=== PATIENT | female | born 1995 | race American Indian/Alaskan Native ===

== ENCOUNTER 2021-04-15 08:14 | Emergency (ER) | payer SELFPAY ==
--- NOTE | 2021-04-15 08:31 | Emergency Department Report ---
ED Female HPI - General Stated complaint: HEAVY BLEEDING Time Seen by Provider: 04/15/21 08:25 - History of Present Illness Initial comments: The patient was evaluated in the emergency department for symptoms described in the history of present illness. He/she was evaluated in the context of the global COVID-19 pandemic, which necessitated consideration that the patient might be at risk for infection with the virus that causes COVID-19. Institut onal protocols and algorithms that pertain to the evaluation of patients at risk for COVID-19 are in a state of rapid change based on information released by regulatory bodies including the CDC and federal and state organizations. These policies and algorithms were followed during the patient's care in the emergency department. Please note that these policies, procedures and recommendations changed on a rapid basis. 25-year-old -[place] female presents to the emergency room stating she is having heavy menstrual cycle. Patient states that she has stop her control back in June and this is her third menstrual cycle that she has had. Patient denies any dizziness shortness of breath chest pain no nausea no vomiting. She reports mild cramping of 1 out of 10. States that her bleeding started yesterday. She reports that she is going to tampons and pads. She reports she currently does not have [facility]. She has no known drug allergies. She has no past medical history currently takes no meds on a daily basis. Patient states that she accept a blood transfusion. She is not vaccinated for Covid no recent travels no suicidal homicidal ideation does not smoke cigarettes marijuana and only drinks occasionally. Complaint: vaginal bleeding Onset/Timin -: days(s) Severity: mild Severity scale (0 -10): 1 Quality: cramping Consistency: intermittent Improves with: none Worsens with: none Are you Now?: No Last Menstrual Period: 04/14/21 EDC: 01/19/22 Associated Symptoms: vaginal bleeding - Related Data Allergies Allergy/AdvReac Type Severity Reaction Status Date / Time No Known Allergies Allergy Unverified 04/15/21 08:25 ED Review of Systems ROS: Stated complaint: HEAVY BLEEDING Other details as noted in HPI Comment: All other systems reviewed and negative ED Physical Exam - General General appearance: alert, in no apparent distress - Head Head exam: Present: atraumatic, normocephalic - Eye Eye exam: Present: normal appearance - ENT ENT exam: Present: normal external ear exam - Neck Neck exam: Present: normal inspection, full ROM - Respiratory Respiratory exam: Absent: respiratory distress, wheezes, accessory muscle use - Cardiovascular Cardiovascular Exam: Present: regular rate - Neurological Exam Neurological exam: Present: alert, oriented X3, normal gait - Psychiatric Psychiatric exam: Present: normal affect, normal mood - Skin Skin exam: Present: warm, dry, intact, normal color. Absent: rash ED Course Vital Signs 04/15/21 04/15/21 08:24 08:33 Temperature 98.1 F Pulse Rate 82 Respiratory 18 Rate Blood Pressure 124/79 O2 Sat by Pulse 99 99 Oximetry ED Medical Decision Making - Lab Data Result diagrams: 04/15/21 08:37 Abnormal Lab Results 04/15/21 04/15/21 08:30 08:37 WBC 6.8 RBC 3.66 Hgb 12.8 Hct 34.1 MCV 93 MCH 35 H MCHC 37 H RDW 12.7 L Plt Count 254 Lymph % (Auto) 28.6 [place] % (Auto) 6.8 Eos % (Auto) 1.4 Baso % (Auto) 0.4 Lymph # (Auto) 1.9 [place] # (Auto) 0.5 Eos # (Auto) 0.1 Baso # (Auto) 0.0 Seg Neutrophils % 62.8 Seg Neutrophils # 4.3 HCG, Quant < 2 - Medical Decision Making 25-year-old -Turk[place] female presents to the emergency room stating she is having heavy menstrual cycle. Patient states that she has stop her control back in June and this is her third menstrual cycle that she has had. Patient denies any dizziness shortness of breath chest pain no nausea no vomiting. She reports mild cramping of 1 out of 10. States that her bleeding started yesterday. She reports that she is going to tampons and pads. She reports she currently does not have [facility]. She has no known drug allergies. She has no past medical history currently takes no meds on a daily basis. Patient states that she accept a blood transfusion. She is not vaccinated for Covid no recent travels no suicidal homicidal ideation does not smoke cigarettes marijuana and only drinks occasionally. CBC hCG. CBC shows no anemia negative hCG no patient will be referred to [facility]. Critical care attestation.: If time is entered above; I have spent that time in minutes in the direct care of this critically ill patient, excluding procedure time. ED Disposition Clinical Impression: Heavy menstrual period Disposition: 01 HOME / SELF CARE / HOMELESS Is pt being admited?: No Does the pt Need Aspirin: No Condition: Stable Instructions: Menorrhagia, [id number] Additional Instructions: Blood work shows no signs of anemia. Negative test. Very important you follow-up with a [facility] or primary care provider. I have listed their information below for your convenience Referrals: [facility] [Provider Group] - 3-5 Days [facility] [Outside] - 3-5 Days [facility] [Outside[facility] - 3-5 Days [facility] [Outside] - 3-5 Days [facility] [Provider Group] - 3-5 Days Forms: Work/School Release Form(ED) Time of Disposition: 09:17
[2021-04-15 08:33] VITALS: BP 124/79
[2021-04-15 08:48] LABS: Basophils % (Auto) 0.4 % (0.0-1.8); Eosinophils # (Auto) 0.1 K/mm3 (0.0-0.4); Eosinophils % (Auto) 1.4 % (0.0-4.3); Lymphocytes # (Auto) 1.9 K/mm3 (1.2-5.4); Lymphocytes % (Auto) 28.6 % (13.4-35.0); Mean Corpuscular HGB Conc 37 % (30-34); Mean Corpuscular Volume 93 fl (79-97); Monocytes # (Auto) 0.5 K/mm3 (0.0-0.8); Monocytes % (Auto) 6.8 % (0.0-7.3); Platelet Count 254 K/mm3 (140-440); Red Blood Count 3.66 M/mm3 (3.65-5.03); Red Cell Distribution Width 12.7 % (13.2-15.2)
[2021-04-15 09:09] LABS: Hematocrit 34.1 % (30.3-42.9); Hemoglobin 12.8 gm/dl (10.1-14.3)
== END 2021-04-15 09:51 | disposition home or self-care (01) ==
LOC: ED 08:14
DX: N94.6 Dysmenorrhea, unspecified (principal)
CPT/HCPCS: 36415; 84702; 85025; 99283